=== PATIENT | male | born 1950 | race Caucasian/White ===

== ENCOUNTER → 2018-09-18 05:42 | Day surgery (SDC) | payer MEDICARE, OTHER ==
--- NOTE | 2018-08-16 06:32 | HP ---
CC: Dr. Alvarado * ADMITTING HISTORY AND PHYSICAL: DATE OF ADMISSION: 08/23/18 ADMITTING DIAGNOSES: 1. Gross hematuria. 2. Left renal calculus. PLANNED PROCEDURE: Left ureteroscopy, pyeloscopy, laser lithotripsy, and left stent insertion. SURGEON: Dr. Alarcon. HISTORY OF PRESENT ILLNESS: Girma Parekh is a 68-year-old gentleman who has had several episodes of gross hematuria. A CT scan had revealed a 7 to 8 mm calculus in the left renal pelvis and this calculus has not been visible on 2 consecutive plain x-rays leading me to think that this may represent a uric acid calculus. He was started on potassium citrate in an effort to try and dissolve the stone, but had another few episodes of gross hematuria recently. An ultrasound revealed an actual increase in the size of the calculus, which is now 9 mm and is present at the ureteropelvic junction. He is now being brought in for endoscopic management of the calculus because of the proximal location of the calculus. I have explained to him that he may require a 2-stage procedure with an initial stent insertion, possibly to be followed by a repeat ureteroscopy depending on the caliber of the ureter and the ease of expressing the renal pelvis on ureteroscopy. PAST MEDICAL HISTORY: Significant for high cholesterol. PAST SURGICAL HISTORY: Significant for bilateral total knee replacement and right total hip replacement. MEDICATIONS ON ADMISSION: Include: 1. Pravastatin 20 mg daily. 2. Flomax 0.4 mg daily. ALLERGIES: No known drug allergies. FAMILY HISTORY: His father had prostate cancer and he also has a family history of kidney stones. SMOKING HISTORY: He is a former smoker who quit in 1983 with a 10-pack year smoking history. PHYSICAL EXAMINATION GENERAL: Reveals a pleasant, healthy-appearing middle-aged gentleman. VITAL SIGNS: Blood pressure is 130/80, pulse 84 per minute and regular, temperature 97.4, oxygen saturation 96% on room air. LUNGS: Clear bilaterally. CARDIOVASCULAR EXAM: Regular rate and rhythm. S1, S2. ABDOMEN: Soft without masses. IMPRESSION: A 68-year-old gentleman with multiple episodes of gross hematuria secondary to a calculus in the left ureteropelvic junction. PLAN: Planned procedures are left ureteroscopy, pyeloscopy, laser lithotripsy, and stent insertion. [id number]/[facility] #: [id number] [facility]
--- NOTE | 2018-09-17 11:31 | HP ---
CC: Dr. Alvarado* ADMITTING HISTORY AND PHYSICAL: DATE OF ADMISSION: 09/18/18 ADMITTING DIAGNOSES: 1. Left renal calculus. 2. Recurrent episodes of gross hematuria. PLANNED PROCEDURE: Left ureteroscopy, pyeloscopy, laser lithotripsy, and left stent insertion. SURGEON: Dr. Alarcon. HISTORY OF PRESENT ILLNESS: Girma Parekh is a 68-year-old gentleman, who had previously been scheduled for the above-mentioned procedure on 08/23/18. He developed upper respiratory illness and the procedure had to be rescheduled and is now scheduled for 09/18/18. He was noted to have an approximately 8- to 9-mm calculus in the left renal pelvis and has had recurrent episodes of gross hematuria. PAST MEDICAL HISTORY: Significant for high cholesterol. PAST SURGICAL HISTORY: Significant for bilateral total knee replacements and right total hip replacement. MEDICATIONS: 1. Flomax 0.4 mg daily. 2. Pravastatin 20 mg daily. ALLERGIES: No known drug allergies. FAMILY HISTORY: Positive for prostate cancer in his father and also he has a strong family history of kidney stones. SOCIAL HISTORY: Smoking history: He is an ex-smoker with a 10- to 12-pack- year smoking history, who quit in 1983. REVIEW OF SYSTEMS: He is otherwise in excellent health. He denies any chest pain or shortness of breath and he has recovered completely from his recent upper respiratory illness. PHYSICAL EXAMINATION GENERAL: Reveals a pleasant, healthy-appearing gentleman. VITAL SIGNS: Blood pressure is 144/76, pulse 76 per minute and regular, temperature 97.5, oxygen saturation 98% on room air. LUNGS: Clear bilaterally. CARDIOVASCULAR: Regular rate and rhythm. S1, S2. ABDOMEN: Soft without masses. IMPRESSION AND PLAN: He has approximately 8- to 9-mm calculus in the area of the left renal pelvis, which is not visualized on plain x-rays and I had originally placed him on potassium citrate thinking that if this is a uric acid stone, I might be able to try and dissolve it; however, after taking the potassium citrate for over a month, he actually had a slight increase in the size of the calculus and is now being brought in for left ureteroscopy, possible laser, and stent insertion. [id number]/[facility] #: [id number] [facility]
[~2018-09-18 05:42] MED LIST: Acetaminophen TAB* 325 MG PO PRN; Buffered Lidocaine 1% SYRIN* 1 ML/SYRINGE INTRADERM ONE; Dexamethasone IV* 4 MG/ML 1 ML (4 MG) ONE; DiMENhydriNATE IV* 50 MG/ML VIAL IV PUSH PRN; Iohexol 180 (CONTRAST) 10 ML SDV IV ONE; Lactated Ringers 1000 ML Bag* 1,000 ML IV SCH; Lidocaine 2% PF * 5 ML VIAL ONE; Metoclopramide IV* 5 MG/ML 2 ML VIAL ONE; Midazolam* 1 MG/ML 2 ML VIAL (2 MG) ONE; Naloxone* 0.4 MG/ML 1 ML VIAL IV PRN; Ondansetron INJ* 2 MG/ML VIAL ONE; Propofol* 10 MG/ML 20 ML BTL ONE; cefTRIAXone(*) 2 GM ADDV.VIAL IVPB ONE; fentaNYL* 50 MCG/ML 2 ML VIAL (100 MCG VIAL) IV PRN; fentaNYL* 50 MCG/ML 2 ML VIAL (100 MCG VIAL) ONE; oxyCODONE TAB* 5 MG TAB PO PRN
[2018-09-18 09:33] VITALS: BP 142/79
--- NOTE | 2018-09-18 11:27 | OP ---
CC: Dr. Alvarado; Dr. Aroldo Alarcon* OPERATIVE REPORT: DATE OF OPERATION: 09/18/18 - [facility] DATE OF : 50 SURGEON: Aroldo Alarcon MD ANESTHESIOLOGIST: Dr. Mejia. ANESTHESIA: General. PRE-OP DIAGNOSES: 1. Left renal calculus. 2. Recurrent episodes of gross hematuria. POST-OP DIAGNOSES: 1. Left renal calculus. 2. Recurrent episodes of gross hematuria. 3. Bladder calculi and enlarged prostate. OPERATIVE PROCEDURES: 1. Cystoscopy. 2. Left ureteral dilatation. 3. Left ureteroscopy. 4. Left stent insertion. 5. Fragmentation and removal of small bladder calculi. COMPLICATIONS: None. STENT USED: A 7-Cuban stent, left ureter. OPERATIVE FINDINGS: 1. [id number] enlarged prostate. 2. Multiple small bladder calculi. 3. Fairly narrow left ureter with a radiopaque calculus noted in left renal pelvis. POSTOPERATIVE CONDITION: Stable. INDICATIONS: Girma Parekh is a 68-year-old gentleman, who has had recurrent episodes of gross hematuria secondary to calculus in the left renal pelvis, which was visualized on CT and ultrasound, but has not been seen on multiple plain x-rays suggesting that it may be a radiolucent calculus. DESCRIPTION OF PROCEDURE: After induction of general anesthesia, the patient was placed in dorsal lithotomy position. Sequential compression devices were in place and functioning. Initial cystoscopy revealed a normal-appearing urethra, significantly enlarged prostate with lateral lobe as well as median lobe enlargement. The bladder was examined. There were few small bladder calculi noted, which at the end of the procedure were fragmented and irrigated out. There was no evidence of any suspicious bladder lesions noted. A guidewire was introduced into the left ureter. On fluoroscopy, I could easily visualize the calculus, which appeared radiopaque in the area of the left renal pelvis. The ureter was fairly narrow and even a 4-Cuban open-ended catheter was very snug in the ureter. The ureter was carefully dilated initially to 4-Cuban and then subsequently to 8-Cuban. Once this was done, a 6-Cuban semirigid ureteroscope was introduced and advanced under direct vision. In spite of having dilated the ureter to 8-Cuban, the ureter was still extremely narrow and I advanced the ureteroscope about 3 to 4 cm into the ureter and then realized that it would be probably traumatic to the ureter to try to advance the ureteroscope all the way to the renal pelvis. In any case since the stone appeared radiopaque, I thought he would be a reasonably good candidate for shockwave lithotripsy and I elected to proceed with placement of 7 -Cuban left ureteral stent, which was positioned under fluoroscopic monitoring with good proximal and distal positioning obtained. As mentioned above, the small bladder calculi were fragmented and irrigated out of the end of the procedure. There was no need for a Wellington catheter and none was placed. The patient tolerated the procedure satisfactorily and was transferred back to the recovery area in stable condition. The plan is to bring him back in the next few weeks for shockwave lithotripsy as an outpatient. [id number]/[facility] #: [id number] [facility]
== END | disposition home or self-care (01) ==
LOC: OR 05:42
PROVIDERS: ATTEND Urology
DX: N20.0 Calculus of kidney (principal); R31.0 Gross hematuria; N21.0 Calculus in bladder; N40.0 Benign prostatic hyperplasia without lower urinary tract symptoms; E78.00 Pure hypercholesterolemia, unspecified; Z87.891 Personal history of nicotine dependence; Z85.820 Personal history of malignant melanoma of skin
CPT/HCPCS: 74018; 74420; C1876; J0696; J1100; J2250; J2405; J2704; J2765; J3010

== ENCOUNTER 2018-10-07 08:47 | Day surgery (SDC) | payer MEDICARE, OTHER ==
[~2018-10-07 08:47] MED LIST changes: -Acetaminophen TAB* 325 MG PO PRN; -Dexamethasone IV* 4 MG/ML 1 ML (4 MG) ONE; +Dexamethasone TAB* 4 MG PO ONE; +Famotidine IV* 10 MG/ML 2 ML (20 mg) IV ONE; -Iohexol 180 (CONTRAST) 10 ML SDV IV ONE; -Lidocaine 2% PF * 5 ML VIAL ONE; -Metoclopramide IV* 5 MG/ML 2 ML VIAL ONE; -Midazolam* 1 MG/ML 2 ML VIAL (2 MG) ONE; +Morphine 4 MG/ML VIAL (1 ml) 4 MG/ML VIAL IV PRN; +PROCHLORPERAZINE INJ 5 MG/ML 2 ML VIAL IV PRN; -Propofol* 10 MG/ML 20 ML BTL ONE; -cefTRIAXone(*) 2 GM ADDV.VIAL IVPB ONE; -fentaNYL* 50 MCG/ML 2 ML VIAL (100 MCG VIAL) ONE; -oxyCODONE TAB* 5 MG TAB PO PRN; +oxyCODONE/Acetamin 5/325 MG* TAB PO PRN
[2018-10-07] MEDS ORDERED: cefTRIAXone(*) 2 GM ADDV.VIAL IVPB ONE (09:14)
[2018-10-07] MEDS ORDERED: Dexamethasone TAB* 4 MG ONE (09:16)
[2018-10-07] MEDS ORDERED: Famotidine IV* 10 MG/ML 2 ML (20 mg) ONE (09:16)
[2018-10-07] MEDS ORDERED: Ondansetron ODT TAB* 4 MG ONE (09:16)
[2018-10-07] MEDS ORDERED: Buffered Lidocaine 1% SYRIN* 1 ML/SYRINGE INTRADERM ONE (09:16)
[2018-10-07] MEDS ORDERED: fentaNYL* 50 MCG/ML 2 ML VIAL (100 MCG VIAL) ONE (09:27)
[2018-10-07] MEDS ORDERED: Midazolam* 1 MG/ML 5 ML VIAL (5 MG) ONE (09:28)
[2018-10-07] MEDS ORDERED: KETAMINE HCL* 50 MG/ML 10 ML VIAL ONE (09:28)
[2018-10-07] MEDS ORDERED: Iohexol 180 (CONTRAST) 10 ML SDV IV ONE (10:47)
[2018-10-07] MEDS ORDERED: Lidocaine 2% PF * 5 ML VIAL ONE (11:06)
[2018-10-07] MEDS ORDERED: Propofol* 10 MG/ML 20 ML BTL ONE (11:06)
[2018-10-07] MEDS ORDERED: EPHEDrine (Pressors)* 50 MG/ML VIAL ONE (11:17)
[2018-10-07 13:24] VITALS: BP 145/70
--- NOTE | 2018-10-07 21:45 | OP ---
CC: Dr. Vasquez Alvarado * DATE OF OPERATION: 10/07/18 - [facility] DATE OF : 50 SURGEON: Dr. Alarcon. ANESTHESIOLOGIST: Dr. Ervin. ANESTHESIA: General. PRE-OP DIAGNOSIS: Left renal calculus. POST-OP DIAGNOSIS: Left renal calculus. OPERATIVE PROCEDURE: 1. Shockwave lithotripsy, left renal calculus. 2. Cystoscopy and left stent removal. COMPLICATIONS: None. POSTOPERATIVE CONDITION: Stable. INDICATIONS: Girma Parekh is a 68-year-old gentleman who has had recurrent episodes of gross hematuria secondary to an approximately 1 cm calculus in the left renal pelvis. He had previously undergone left stent insertion and is now being brought in for treatment of the calculus. DESCRIPTION OF PROCEDURE: After induction of general anesthesia, the patient was placed on the lithotripsy table in supine position. The calculus which was within in the proximal loop of the left stent was visualized using fluoroscopy and shockwave lithotripsy was commenced at a rate of 60 shocks per minute. After the initial 300 shocks, there was a pause in lithotripsy for several minutes in an effort to minimize any potential trauma to the kidney. Lithotripsy was then resumed and periodic imaging revealed good localization and fragmentation. A total of 2200 shocks were administered. Next, the patient was placed in dorsal lithotomy position, the stent was seen exiting from the left ureter and was grasped and removed intact without difficulty. The bladder was emptied. The patient tolerated the procedure satisfactorily and was transferred back to the recovery area in stable condition. [id number]/[facility] #: [id number] [facility]
== END 2018-10-07 13:10 | disposition home or self-care (01) ==
LOC: OR 08:47
PROVIDERS: ATTEND Urology
DX: N20.0 Calculus of kidney (principal); R31.0 Gross hematuria; Z87.891 Personal history of nicotine dependence; E78.5 Hyperlipidemia, unspecified
CPT/HCPCS: 74018; A9270-GY; J0696; J2250; J2704; J3010; J8540

== ENCOUNTER 2019-05-01 13:30 | Observation (INO) | payer MEDICARE, OTHER ==
--- NOTE | 2019-06-16 20:54 | HP ---
PREOPERATIVE HISTORY AND PHYSICAL: DATE OF ADMISSION/SURGERY: 07/01/19 DATE OF OFFICE VISIT: 06/16/19 ATTENDING SURGEON: Dr. Coby Martino.* (DICTATED BY CALEB BROWN) PROCEDURE: Left total hip replacement. CHIEF COMPLAINT: Left hip pain. HISTORY OF PRESENT ILLNESS: Girma is a 69-year-old female who presents to the clinic for left hip pain due to end-stage osteoarthritis. He has failed conservative measures, therefore agreed to undergo left total hip replacement with Dr. Martino on 07/01/19. PAST MEDICAL HISTORY: Melanoma, osteoarthritis, high cholesterol, BPH. PAST SURGICAL HISTORY: Bilateral total knee arthroplasties, right total hip arthroplasty, melanoma excision. The patient denies prior complication with anesthesia. MEDICATIONS: 1. Flomax 0.4 mg one by mouth every day. 2. Centrum 1 mg daily. 3. Magnesium 1 daily. 4. Vitamin D 1 daily. 5. Atorvastatin calcium 20 mg one every day. ALLERGIES: No known drug allergies. FAMILY HISTORY: Positive for diabetes and cancer. Denies family history of DVT or PE. SOCIAL HISTORY: He lives with his . 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 He denies tobacco use. He quit in 1983. He reports occasional alcohol consumption. He is right hand dominant. He drinks about 4 alcoholic beverages a week. REVIEW OF SYSTEMS: A 14-point review of systems was reviewed with the patient. Positive for current complaint, otherwise negative. Denies fever, chills, chest pain, shortness of breath, history of bleeding disorder, history of DVT or PE. PHYSICAL EXAMINATION GENERAL: A 69-year-old well-developed and well-nourished male, in no acute distress. VITAL SIGNS: Height 74, weight 246, pulse 80, blood pressure 146/60, respiratory rate 20, BMI 31.6. HEENT: Normocephalic, atraumatic. PERRLA. Throat: Clear. NECK: Supple. PULMONARY: Lungs clear to auscultation bilaterally. No wheezing, rhonchi, or rales. CARDIO: Regular rate and rhythm. S1, S2. No murmurs, gallops, or rubs. No edema. ABDOMEN: Positive bowel sounds, soft, nontender. NEURO: Alert and oriented x3. Cranial nerves grossly intact. MUSCULOSKELETAL: Left lower extremity, skin is intact. No warmth or erythema. No abrasions or bruise. No palpable masses or lymph nodes. Hip flexion at 90 degrees with severe groin pain. He externally rotates 20 degrees. He lacks internal rotation. +4/5 strength ankle dorsiflexor. Calf soft, nontender. +2 DP pulse. Sensation intact to light touch distally. DIAGNOSTIC STUDIES: Multiple x-rays of the left hip revealed end-stage osteoarthritis with [id number] contact osteophyte formation, subchondral sclerosis with cyst formation. IMPRESSION: Left hip osteoarthritis. PLAN/RECOMMENDATIONS: Mr. Parekh is a 69-year-old male who is scheduled to undergo left total hip replacement with Dr. Martino on 07/01/19. He will follow up in 10 to 14 days postop for followup and suture removal. Percocet will be used for postoperative pain management. CALEB BROWN [id number]/[facility] #: [id number] C[facility]
[2019-06-30] MEDS ORDERED: Buffered Lidocaine 1% SYRIN* 1 ML/SYRINGE INTRADERM ONE (13:38)
[2019-07-01] MEDS ORDERED: Tranexamic Acid 1,000 MG in NS 0.9% 50 ML* (outpatient use) IV SCH ×2
[2019-07-01] MEDS ORDERED: Lactated Ringers 1000 ML Bag* 1,000 ML IV SCH (06:00)
[2019-07-01] MEDS ORDERED: Dexamethasone TAB* 4 MG PO ONE (06:00)
[2019-07-01] MEDS ORDERED: Famotidine IV* 10 MG/ML 2 ML (20 mg) IV ONE (06:00)
[2019-07-01] MEDS ORDERED: Bupivacaine 0.5% SDV PF* 30ML VIAL ONE (08:49)
--- OUTSIDE RECORDS SUMMARY | 2019-07-01 10:02 | XMS REPORT | Continuity of Care Document ---
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 Onset: 05/31/2016 Abdominal aortic aneurysm without rupture Vasquez Alvarado D.O. Onset: 2016 History of malignant melanoma of the skin Vasquez Alvarado D.O. Onset: 2016 Osteochondropathy Vasquez Alvarado D.O. Onset: 08/29/2016 Vitamin D deficiency Vasquez Alvarado D.O. Onset: 08/29/2016 Kidney stone David Borden Onset: 10/28/2018 Pain of left hip joint David Borden Onset: 02/17/2019 Social History Type Date Description Comments Sex Unknown Tobacco Use Start: Unknown Denies Cigarette Use ETOH Use Occassional Alcohol Recreational Drug Use drug use - occasionally (rare) Tobacco Use Start: Unknown Non Smoker Smoking Status Reviewed: 06/12/19 Non Smoker Exercise Type/Frequency Exercises regularly Exercise Type/Frequency Exercises sporadically Sun Exposure Uses sunscreen not often Seat Belt/Car Seat Seat Belt Use - Yes Allergies, Adverse Reactions, Alerts Description No Known Drug Allergies Medications Active Medications SIG Qnty Indications Ordering Date Provider Vitamin E 360 MG one po daily Unknown 06/11/2019 Co Q-10 1 by mouth every Unknown 06/11/2019 100mg day Capsules Verapamil HCL TK 1 T PO D Unknown 05/22/2019 40mg Tablets Sildenafil Citrate 1/4 tab to 1 tab by 6taRodney Allen, 05/01/2019 mouth 20-60 minutes M.D. 100mg Tablets before anticipated sexual activity, for ED, maximum 1 a day Atorvastatin Calcium take one tablet by 90tabs Rodney Terry, 2018 mouth daily for M.D. 20mg Tablets cholesterol control Tamsulosin HCL 1 by mouth every 30caps Vasquez Alvarado, 01/15/2018 0.4mg day D.O. Capsules Advil 2-3 tabs every 6 Unknown 200mg Capsules hours, as needed with food Vitamin D3 1 tab by mouth Unknown 5000Unit every day or 7 tabs Tablets once a week Valtrex 1 by mouth every 30tabs Vasquez Alvarado, 500mg Tablets day as needed D.O. History Medications Doxycycline Hyclate 2 cap by mouth 2tabs Vasquez Alvarado, 03/14/2019 - 100mg once after tick D.O. 03/28/2019 Tablets bite lasting greater than 36hours Doxycycline 2 by mouth once 2caps Vasquez Alvarado, 02/27/2019 - Monohydrate D.O. 03/08/2019 100mg Capsules Iodine 300 MG 1 qd Rodney Terry, 02/17/2019 - M.D. 06/11/2019 Magnesium Oxide 1 qd Rodney Terry, 02/17/2019 - 400mg M.D. 06/11/2019 Tablets Immunizations CPT Code Status Date Vaccine Lot # [id number] Given 02/17/2019 Influenza Vaccine, Inactivated, Subunit, [id number] Adjuvanted, For [facility] [address] Given 02/15/2018 Influenza Vaccine, Inactivated, Subunit, [id number] [facility]ed, [place] [facility] [address] Given 04/05/2017 Adacel or Boostrix, TDaP [id number] 19910 Given 04/05/2017 Prevnar 13 [id number] Given 01/03/2017 Influenza Virus Vaccine, Quadrivalent, Split, [id number] Preservative Free Vital Signs Date Vital Result Comment 06/12/2019 9:19am BP Systolic 128 mmHg BP Diastolic 68 mmHg Height 73.5 inches 6'1.50" w/shoes Weight 231.00 lb w/shoes BMI (Body Mass Index) 30.1 kg/m2 02/17/2019 8:57am BP Systolic 120 mmHg BP Diastolic 82 mmHg Height 72.25 inches 6'0.25" Weight 237.00 lb BMI (Body Mass Index) 31.9 kg/m2 Results Test Acquired Date Facility Test Result H/L Range Note Urine Culture And 06/12/2019 [facility] Urine SEE RESULT 1 Sensitivities [phone] Culture BELOW Urinalysis Profile 06/12/2019 [facility] Urine Color Yellow [phone] Urine Appearance Clear Urine Specific [place] 1.016 Normal 1.010-1.030 Urine pH 6.0 Normal 5-9 Urine Urobilinogen Negative Negative Urine Ketones Negative Negative Urine Protein Negative Negative Urine Leukocytes Negative Negative Urine Blood 1+ Abnormal Negative Urine Nitrite Negative Negative Urine Bilirubin Negative Negative Urine Glucose Negative Negative Urine White Blood Cell Absent Absent Urine Red Blood Cell Trace(0-2/hpf) Absent Urine Bacteria Absent Absent Laboratory test finding 02/28/2019 [facility] HCG Tumor Marker <0.6 IU/ L <1.4 2 [phone] Afp Tumor Marker 3.3 ng/mL <6.0 3 Laboratory test 02/18/2019 [facility] PSA Screening 2.217 ng/mL Normal 0-4.000 4 finding [phone] Comp Metabolic 02/18/2019 [facility] Sodium 139 mmol/L Normal 135- 145 Panel [phone] Potassium 4.4 mmol/L Normal 3.5-5.0 Chloride 107 mmol/L Normal 101-111 Co2 Carbon Dioxide 26 mmol/L Normal 22-32 Anion Gap 6 mmol/L Normal 2-11 Glucose 94 mg/dL Normal 70-100 Blood Urea Nitrogen 22 mg/dL Normal 6-24 Creatinine 0.85 mg/dL Normal 0.67-1.17 BUN/Creatinine Ratio 25.9 High 8-20 Calcium 8.9 mg/dL Normal 8.6-10.3 Total Protein 6.7 g/dL Normal 6.4-8.9 Albumin 4.2 g/dL Normal 3.2-5.2 Globulin 2.5 g/dL Normal 2-4 Albumin/Globulin Ratio 1.7 Normal 1-3 Total Bilirubin 0.40 mg/dL Normal 0.2-1.0 Alkaline Phosphatase 94 U/L Normal 34-104 Alt 18 U/L Normal 7-52 Ast 15 U/L Normal 13-39 Egfr Non- 89.4 >60 Egfr 108.1 >60 5 Lipid Profile (Trig/Chol/HDL) 02/18/2019 [facility] Triglycerides 121 mg/dL 6 [phone] Cholesterol 197 mg/dL 7 HDL Cholesterol 49.8 mg/dL 8 LDL Cholesterol 123 mg/dL 9 Ua Inhouse 02/17/2019 In House Ua Specific [place] 1.015 Ua PH 7.0 1 SEE RESULT BELOW Name: APRIL REICH : [address]: Jennyfer Heck MD Acct: [id number] Unit: [id number] AGE: 69 Location: [facility] Re06/12/19 SEX: M Status: REG REF SPEC: [id number] ROSEMARIE: 06/12/19 [facility] DR: Jennyfer Heck MD REQ: [id number] RECD: 06/12/19 STATUS: COMP _ SOURCE: URINE SPDESC: ORDERED: Urine Culture Urine Source: Clean Catch Procedure Result Reported Site Urine Culture Final 06/13/19- 1403 ML No Growth (<1,000 CFU/mL) * ML - Main Lab . END OF REPORT DEPARTMENT OF PATHOLOGY, [address] [place] [address] Fernando Hatch M.D. Director [facility] # [id number] 2 ADDITIONAL INFORMATION This test has been modified from the chef head's instructions. Its performance characteristics were determined by [facility] in a manner consistent with CLIA requirements. This test has not been cleared or approved by the U.S. Food and Drug Administration. The testing method is an electrochemiluminescence assay manufactured by [employer] and performed on the Modular or Fred system. Values obtained with different assay methods or kits may be different and cannot be used interchangeably. Test results cannot be interpreted as absolute evidence for the presence or absence of malignant disease. Test Performed by: [facility] - [address] [address] [employer]: Bridger Cain M.D. Ph.D.; CLIA# [id number] 3 ADDITIONAL INFORMATION The testing method is an immunoenzymatic assay manufactured by [employer] and performed on the kaufDA DxI 800. Values obtained with different assay methods or kits may be different and cannot be used interchangeably. Test results cannot be interpreted as absolute evidence for the presence or absence of malignant disease. Alpha-Fetoprotein values are not interpretable in females for the investigation of malignant disease. Test Performed by: [facility] [address] [place] [address] [employer]: Bridger Cain M.D. Ph.D.; CLIA# [id number] 4 Serum levels of PSA measured using the Colleen Krystal DXI Hybritech immunoassay should not be interpreted as absolute evidence of the presence or absence of disease. The PSA value should be used in conjunction with other pertinent clinical diagnostic procedures. The values obtained with different assay methods or kits cannot be used interchangeably. 5 Because ethnic data is not always readily available, this report includes an eGFR for both -Americans and non- Americans. The National Kidney Disease Education Program (NKDEP) does not endorse the use of the MDRD equation for patients that are not between the ages of 18 and 70, are , have extremes of body size, muscle mass, or nutritional status, or are non- or non-. According to the National Kidney Foundation, irrespective of diagnosis, the stage of the disease is based on the level of kidney function: Stage Description GFR(mL/min/1.73 m(2)) 1 Kidney damage with normal or decreased GFR 90 2 Kidney damage with mild decrease in GFR 60-89 3 Moderate decrease in GFR 30-59 4 Severe decrease in GFR 15-29 5 Kidney failure <15 (or dialysis) 6 Desirable: <150 Borderline High: 150-199 High: 200-499 Very High: >500 7 Desirable: <200 Borderline High: 200-239 High: >239 8 Low: <40 Desirable: 40-60 High: >60 9 Desirable: <100 Near Optimal: 100-129 Borderline High: 130-159 High: 160-189 Very High: >189 Procedures Date Code Description Status 09/25/2013 [id number] Colonoscopy Completed Medical Devices Description No Information Available Encounters Type Date Location Provider Dx Diagnosis Office Visit 06/12/2019 Main Office Jennyfer Heck Z01.818 Encounter for other 9:00a preprocedural examination Z68.30 Body mass index (BMI) 30.0-30.9, adult Office Visit 02/17/2019 8:00a Main Office Jerri Flores N40.1 Benign prostatic P.A. hyperplasia with lower urinary tract symp E78.00 Pure hypercholesterolemia, unspecified Z23 Encounter for immunization Z41.8 Encntr for oth proc for purpose oth than remedy [facility] E66.3 Overweight Z80.42 Family history of malignant neoplasm of prostate Z00.00 Encntr for general adult medical exam w/o abnormal findings Z68.31 Body mass index (BMI) 31.0-31.9, adult Assessments Date Code Description Provider 06/12/2019 Z01.818 Encounter for other preprocedural examination Jennyfer Heck MD 06/12/2019 Z68.30 Body mass index (BMI) 30.0-30.9, adult Jennyfer Heck MD 02/17/2019 N40.1 Benign prostatic hyperplasia with lower Jerri Broomall, P.A. urinary tract sympto 02/17/2019 E78.00 Pure hypercholesterolemia, unspecified Jerri Broomall, P.A. 02/17/2019 Z23 Encounter for immunization Jerri Broomall, P.A. 02/17/2019 Z41.8 Encounter for other procedures for purposes [facility]ri Broomall, P.[facility]. [facility] 02/17/2019 E66.3 Overweight Jerri Broomall, P.A. 02/17/2019 Z80.42 Family history of malignant neoplasm of Jerri Broomall, P.A. prostate 02/17/2019 Z00.00 Encounter for general adult medical Jerri Broomall, P.A. examination without abnormal findings 02/17/2019 Z68.31 Body mass index (BMI) 31.0-31.9, adult Jerri Broomall, P.A. Plan of Treatment Future Appointment(s):02/19/2020 9:00 am - Jennyfer Heck MD at Main [id number] - Jerri Broomall, P.A.N40.1 Benign prostatic hyperplasia with lower urinary tract symptoComments:pt expressed a lot of concern with the situation that his [facility] an aggressive form of prostate ca was missed. Pt interested in pursuing a second opinion for self to evaluate this.Referral:Errol Erazo MD, XdwehsjH08.00 Pure hypercholesterolemia, aceputwggwoL34 Encounter for immunizationComments:Counseling done regarding risks and benefits of vaccines, previous vaccine reactions and possible contraindications to vaccine discussed, and pt's questions answered. Pt agreed to vaccination. VIS sheets given.Z41.8 Encounter for other procedures for purposes other than remedying health zhumdC16.3 GdpysbwjmjJ63.42 Family history of malignant neoplasm of lomwbktrH99.00 Encounter for general adult medical examination without abnormal vyiwjfnrS69.31 Body mass index (BMI) 31.0-31.9, adult Functional Status Description No Information Available Mental Status Description No Information Available Referrals Refer to Reason for Referral Status Appt Date Errol Erazo MD Prostate enlargement with brother with recent dx of Closed 08/2018 aggressive prostate cancer, that was missed on multiple tests performed by urologist. most recent PSA 2.62 in 01/2018. Consult and Testing - Specialist [facility] [address] [place] [address] [phone]
--- OUTSIDE RECORDS SUMMARY | 2019-07-01 10:02 | XMS REPORT | Continuity of Care Document ---
:1950 External Reference #:[id number] Author Name Coby Martino M.D. (transmitted by agent of provider Kassandra Fletcher) Address [address] [facility] [place] [address] Care Team Providers Name Role Phone Getachew Núñez M.D. - Family Medicine Care Team Information Cost Consultant [phone] Marco Antonio Ortiz MD - Sports Medicine Care Team Information Cost Consultant [phone] Vasquez Alvarado DO - Family Care Team Information Cost Consultant [phone] Medicine Problems Active Problems Provider Date Localized, primary osteoarthritis of the pelvic Coby Martino M.D. Onset: region and thigh Social History Type Date Description Comments Sex Unknown ETOH Use Occasionally consumes alcohol Tobacco Use Start: Unknown End: Patient is a former smoker 36 years ago Unknown Smoking Status Reviewed: 06/16/19 Patient is a former smoker 36 years ago Exercise Type/Frequency Exercises regularly Allergies, Adverse Reactions, Alerts Description No Known Drug Allergies Medications Active Medications SIG Qnty Indications Ordering Provider Date Flomax 1 by mouth every Unknown 0.4mg Capsules day Centrum 1 by mouth every Unknown Tablets day Magnesium Unknown Vitamin D Unknown Atorvastatin Calcium 1 by mouth every Unknown 20mg day Tablets Medications Administered in Office Medication SIG Qnty Indications Ordering Provider Date No Injection Coby Martino M.D. 02/10/2019 Injection Depomedrol 40MG Coby Martino M.D. 02/10/2019 Injection Depomedrol 80MG Getachew Samayoa M.D. 02/26/2012 Injection Immunizations Description No Information Available Vital Signs Date Vital Result Comment 06/16/2019 8:09am Height 74 inches 6'2" Weight 246.50 lb Heart Rate 80 /min BP Systolic 146 mmHg BP Diastolic 60 mmHg Respiratory Rate 20 /min Body Temperature 97.7 F Pain Level 3 BMI (Body Mass Index) 31.6 kg/m2 02/10/2019 9:32am Height 74 inches 6'2" Weight 241.00 lb Heart Rate 60 /min BP Systolic 130 mmHg BP Diastolic 78 mmHg Respiratory Rate 12 /min Body Temperature 97.1 F Pain Level 8 BMI (Body Mass Index) 30.9 kg/m2 Results Test Acquired Date Facility Test Result H/L Range Note Xray 02/10/2019 [employer] [facility] In House Inj/Aspir Major JT Or Bursa <pending> W/ US Procedures Date Code Description Status 02/10/201926326 Inj/Aspir Major JT Or Bursa W/ US Completed Medical Devices Description No Information Available Encounters Type Date Location Provider Dx Diagnosis Office Visit 02/10/2019 [facility] Aleaxndro Brooke5.552 Pain in left hip 9:00a at [facility] M16.12 Unilateral primary osteoarthritis, left hip Assessments Date Code Description Provider 06/16/2019 M25.552 Pain in left hip Coby Martino M.D. 06/16/2019 M16.12 Unilateral primary osteoarthritis, left hip Coby Martino M.D. 02/24/2019 M25.552 Pain in left hip Coby Martino M.D. 02/24/2019 M16.12 Unilateral primary osteoarthritis, left hip Coby Martino M.D. 02/21/2019 M25.552 Pain in left hip Coby Martino M.D. 02/21/2019 M16.12 Unilateral primary osteoarthritis, left hip Coby Martino M.D. 02/10/2019 M25.552 Pain in left hip Coby Martino M.D. 02/10/2019 M16.12 Unilateral primary osteoarthritis, left hip Coby Martino M.D. Plan of Treatment Future Appointment(s):07/01/2019 10:30 am - Coby Martino M.D. at [facility] at [facility]6/16/2019 - Coby Martino M.D.M25.552 Pain in left hipM16.12 Unilateral primary osteoarthritis, left hipFollow up:10-14 days post op Functional Status Description No Information Available Mental Status Description No Information Available Referrals Description No Information Available
--- OUTSIDE RECORDS SUMMARY | 2019-07-01 10:02 | XMS REPORT | Continuity of Care Document ---
:1950 External Reference #:[id number] Author Name Terry Powell M.D. (transmitted by agent of provider Mariluz Matamoros ) Address [address] [facility] [address] [place] [address] Care Team Providers Name Role Phone Getachew Núñez M.D. 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 Marco Antonio Ortiz MD - Sports Medicine Care Team Information Stone Decorator Vasquez Alvarado DO - Family Care Team Information Stone Decorator [phone] Medicine Problems Active Problems Provider Date Localized, [...] Date Facility Test Result H/L Range Note CBC Auto 06/16/2019 [facility] White Blood 6.0 10^3/uL Normal 3.5-10.[address] [place] [address] [phone] Red Blood Count 5.03 10^6/uL Normal 4.18-5.48 Hemoglobin 14.0 g/dL Normal 14.0-18.0 Hematocrit 42 % Normal 42-52 Mean Corpuscular Volume 83 fL Normal 80-94 Mean Corpuscular Hemoglobin 28 pg Normal 27-31 Mean Corpuscular HGB Conc 34 g/dL Normal 31-36 Red Cell Distribution Width 14 % Normal 10-15 Platelet Count 227 10^3/uL Normal 150-450 Mean Platelet Volume 8.1 fL Normal 7.4-10.4 Abs Neutrophils 3.4 10^3/uL Normal 1.5-7.7 Abs Lymphocytes 1.7 10^3/uL Normal 1.0-4.8 Abs Monocytes 0.5 10^3/uL Normal 0-0.8 Abs Eosinophils 0.3 10^3/uL Normal 0-0.6 Abs Basophils 0.1 10^3/uL Normal 0-0.2 Abs Nucleated RBC 0.0 10^3/uL Granulocyte % 56.1 % Lymphocyte % 28.9 % Monocyte % 8.6 % Eosinophil % 5.5 % Basophil % 0.9 % Nucleated Red Blood Cells % 0.1 Basic Metabolic 06/16/2019 [facility] Sodium 138 mmol/L Normal 135-[address] [place] [address] [phone] Potassium 4.5 mmol/L Normal 3.5-5.0 Chloride 105 mmol/L Normal 101-111 Co2 Carbon Dioxide 27 mmol/L Normal 22-32 Anion Gap 6 mmol/L Normal 2-11 Glucose 86 mg/dL Normal 70-100 Blood Urea Nitrogen 15 mg/dL Normal 6-24 Creatinine 0.83 mg/dL Normal 0.67-1.17 BUN/Creatinine Ratio 18.1 Normal 8-20 Calcium 9.4 mg/dL Normal 8.6-10.3 Egfr Non- 91.9 >60 Egfr 111.2 >60 1 Laboratory 06/16/2019 [facility] TSH (Thyroid 0.53 Normal 0.34 -5.60 test finding [address] Stim Horm) mcIU/[place] [address] [phone] Free T4 (Free Thyroxine) 0.90 ng/dL Normal 0.61-1.12 Inr/Protime 06/16/2019 [facility] Inr 0.91 Normal 0.82-1.[address] [place], [place] [id number] [phone] Laboratory test 06/16/2019 [facility] Partial 37.3 Normal 26.0 -38.[address] [place] [address] Time PTT [phone] Type & Screen 06/16/2019 [facility] Patient O [place] [address] [phone] Antibody Screen NEGATIVE Urinalysis Profile 06/16/2019 [facility] Urine Color [address] [place], [place] [id number] [phone] Urine Appearance Clear Urine Specific [place] 1.004 Low 1.010-1.030 Urine pH 8.0 Normal 5-9 Urine Urobilinogen Negative Negative Urine Ketones Negative Negative Urine Protein Negative Negative Urine Leukocytes Negative Negative Urine Blood 1+ Abnormal Negative Urine Nitrite Negative Negative Urine Bilirubin Negative Negative Urine Glucose Negative Negative Urine White Blood Cell Absent Absent Urine Red Blood Cell Trace(0-2/hpf) Absent Urine Bacteria Absent Absent Urine Culture And 06/16/2019 [facility] Urine Culture SEE RESULT [address] [place] [address] [phone] Xray 02/10/2019 [facility] In House Inj/Aspir <pending> Major JT Or Bursa W/ US 1 Because ethnic data is not always readily [...] 15-29 5 Kidney failure <15 (or dialysis) 2 Standard intensity warfarin therapeutic range: 2.0-3.0 High intensity warfarin therapeutic range: 2.5-3.5 3 SEE RESULT BELOW Name: APRIL REICH : [address]: Coby Martino MD Acct: [id number] Unit: [id number] AGE: 69 Location: [facility] Re06/16/19 SEX: M Status: REG REF SPEC: [id number] ROSEMARIE: 06/16/19-1005 [facility] DR: Coby Martino MD REQ: [id number] RECD: 06/16/19-1023 STATUS: VANESSA JAEGER DR: Vasquez Alvarado DO _ SOURCE: URINE SPDESC: ORDERED: Urine Culture QUERIES: Urine Source: Random Procedure Result Reported Site Urine Culture Final 06/17/19- 1003 ML No Growth (<1,000 CFU/mL) * ML - Main Lab . END OF REPORT DEPARTMENT OF PATHOLOGY, [address] [place] [address] Fernando Hatch M.D. Director [facility] # [id number] Procedures Date Code Description Status 02/10/2019 59878 Inj/Aspir Major JT Or Bursa W/ US Completed Medical Devices Description No Information Available Encounters Type Date Location Provider Dx Diagnosis Office Visit 02/10/2019 [facility] Vane Brooke.55Wu [facility] Unilateral primary osteoarthritis, left hip Assessments [...] 10:30 am - Coby [facility] M.D. at [facility]06/16/2019 - Coby Martino M.D.M25.552 Pain in left hipM16.12 Unilateral primary osteoarthritis, left hipFollow up:10-14 days post op Functional Status Description No Information Available Mental Status Description No Information Available Referrals Description No Information Available
--- OUTSIDE RECORDS SUMMARY | 2019-07-01 10:03 | XMS REPORT | Continuity of Care Document ---
:1950 External Reference #:[id number] Author Name Beulah Feldman [facility] Address [address] [place] [id number] Care Team Providers Name Role Phone Jerri Flores PA-C - Physician Care Team Information Software Engineering Associate Manager Wholesale Account Executive Vasquez Alvarado D.O. - Family Medicine Care Team Information Software Engineering Associate Manager Problems Active Problems Provider Date Abdominal aortic aneurysm without rupture Onset: 08/29/2016 History of malignant melanoma of the skin Onset: 08/29/2016 Kidney stone Onset: 10/28/2018 Mixed hyperlipidemia Onset: 05/31/2016 Osteochondropathy Onset: 08/29/2016 Pain of left hip joint Onset: 02/17/2019 Vitamin D deficiency Onset: 08/29/2016 Benign prostatic hyperplasia with lower urinary tract PO Collins Erazo MD Onset: symptoms Induratio penis plastica PO Collins Erazo MD Onset: 04/30/2019 Benign prostatic hypertrophy with outflow obstruction NIKKO Erazo MD Onset: Social History Type Date Description Comments Sex Unknown Tobacco Use Start: Unknown End: Unknown Former Cigarette Smoker [id number] Smoking Status Reviewed: 04/30/19 Former Cigarette Smoker [id number] ETOH Use Occ Alcohol Intake Allergies, Adverse Reactions, Alerts Description No Known Drug Allergies Medications Active Medications SIG Qnty Indications Ordering Provider Date Verapamil HCL 1 p.o. daily 30tabs N48.6 PO Collins Erazo MD 04/30/2019 40mg Tablets Magnesium Oxide 1 qd Rodney Terry 02/17/2019 400(241.3Mg) mg Tablets Tamsulosin HCL 1 by mouth every 30caps Vasquez Alvarado 01/15/2018 0.4mg day D.O. Capsules Advil 2-3 tabs every 6 Unknown 200mg Capsules hours, as needed with food Vitamin D3 1 tab by mouth Unknown 5000Unit every day or 7 Tablets tabs once a week Valtrex 1 by mouth every 30tabs Vasquez Alvarado 500mg Tablets day as needed D.O. Atorvastatin Calcium CoronaJerri 20mg PA-C Tablets Multi Vitamin 1 by mouth every Unknown Tablets day Coq10 1 by mouth every Unknown 100mg Capsules day Immunizations Description No Information Available Vital Signs Date Vital Result Comment 04/30/2019 9:56am Height 72 inches 6'0" Weight 235.00 lb Weight 106.596 kg BMI (Body Mass Index) 31.9 kg/m2 Results Test Acquired Date Facility Test Result H/L Range Note Laboratory test 05/15/2019 Laboratory [place] Urine <pending> [place] [address] Culture [phone] Laboratory test 05/15/2019 [facility] Rectal Swab < pending> finding [address] [address] [place] [address] [phone] 230 Ua Routine 05/15/2019 [facility] Ua Glucose Negative REF TO DR LEE ON ORDER FOR (315)- - Ua Protein Negative Ua Nitrite Negative Ua Leuko Negative Ua Blood Negative Ua Color Not Entered Ua Ketones Negative Ua Clarity Not Entered Ua Specific [place] 1.025 1.003-1.030 Ua PH 6.0 5.0-7.5 Ua Bilirubin Negative Ua Urobilinogen 0.2 E.U./dL 0.0-1.0 BUN And 05/02/2019 [facility] Blood Urea 21 mg/dL Normal 6-[address] [place], [place] [id number] [phone] Creatinine 05/02/2019 [facility] Creatinine 0.95 Normal 0.67-1.[address] mg/dL [address] [place] [address] [phone] Egfr Non- 78.6 >60 Egfr 95.1 >60 1 230 Ua Routine 04/30/2019 [facility] Ua Glucose Negative REF TO DR ADDRESS ON ORDER FOR (315)- - Ua Protein Negative Ua Nitrite Negative Ua Leuko Negative Ua Blood Negative Ua Color Not Entered Ua Ketones Negative Ua Clarity Not Entered Ua Specific [place] 1.025 1.003-1.030 Ua PH 7.5 5.0-7.5 Ua Bilirubin Negative Ua Urobilinogen 0.2 E.U./dL 0.0-1.0 Lab Results 02/18/2019 N2N/CCD Import PSA Screening 2.217 ng/mL 0-4.000 2 Sodium 139 mmol/L 135-145 Potassium 4.4 mmol/L 3.5-5.0 Chloride 107 mmol/L 101-111 Co2 Carbon Dioxide 26 mmol/L 22-32 Anion Gap 6 mmol/L 2-11 Glucose 94 mg/dL 70-100 Blood Urea Nitrogen 22 mg/dL 6-24 Creatinine 0.85 mg/dL 0.67-1.17 BUN/Creatinine Ratio 25.9 1 High 8-20 Calcium 8.9 mg/dL 8.6-10.3 Total Protein 6.7 g/dL 6.4-8.9 Albumin 4.2 g/dL 3.2-5.2 Globulin 2.5 g/dL 2-4 Albumin/Globulin Ratio 1.7 1 1-3 Total Bilirubin 0.40 mg/dL 0.2-1.0 Alkaline Phosphatase 94 U/L 34-104 Alt 18 U/L 7-52 Ast 15 U/L 13-39 Egfr Non- 89.4 1 Egfr 108.1 1 3 Lipid Profile (Trig/Chol/HDL) 02/18/2019 N2N/CCD Import Triglycerides 121 mg/dL 4 Cholesterol 197 mg/dL 5 HDL Cholesterol 49.8 mg/dL 6 LDL Cholesterol 123 mg/dL 7 Lab Results 02/17/2019 N2N/CCD Import PSA Screening <pending> 1 Because ethnic data is not always [...] 5 Kidney failure <15 (or dialysis) 2 Serum levels of PSA measured using the [employer] De[employer] DXI Hybritech immunoassay should not be interpreted as absolute evidence of the presence or absence of disease. The PSA value should be used in conjunction with other pertinent clinical diagnostic procedures. The values obtained with different assay methods or kits cannot be used interchangeably. 3 Because ethnic data is not always readily [...] 15-29 5 Kidney failure <15 (or dialysis) 4 Serum levels of PSA measured using the [employer] DXI Hybritech immunoassay should not be interpreted as absolute evidence of the presence or absence of disease. The PSA value should be used in conjunction with other pertinent clinical diagnostic procedures. The values obtained with different assay methods or kits cannot be used interchangeably. 5 Desirable: <200 Borderline High: 200-239 High: >239 6 Low: <40 Desirable: 40-60 High: >60 7 Desirable: <100 Near Optimal: 100-129 Borderline High: 130-159 High: 160-189 Very High: >189 Procedures Description No Information Available Medical Devices Description No Information Available Encounters Type Date Location Provider Dx Diagnosis Office Visit 05/15/2019 [facility] Beulah Feldman, Z00.00 Encntr for general 3:30p Street/ [facility]- adult medical exam Urology w/o abnormal findings N40.3 Nodular prostate with lower urinary tract symptoms Z80.42 Family history of malignant neoplasm of prostate Office Visit 04/30/2019 10:40a [facility] NIKKO Erazo MD N40.[address]/ [facility] hyperplasia with Urology lower urinary tract symp N40.3 Nodular prostate with lower urinary tract symptoms N48.6 Induration penis plastica Assessments Date Code Description Provider 05/15/2019 Z00.00 Encounter for general adult medical Beulah Feldman [employer] examination without abnormal findings 05/15/2019 N40.3 Nodular prostate with lower urinary tract Beulah Feldman [employer] symptoms 05/15/2019 Z80.42 Family history of malignant neoplasm of Beulah Feldman [employer] prostate 04/30/2019 N40.1 Benign prostatic hyperplasia with lower PO Collins Erazo MD urinary tract symptoms 04/30/2019 N40.3 Nodular prostate with lower urinary tract NIKKO Erazo MD symptoms 04/30/2019 N48.6 Induration penis plastica NIKKO Erazo MD Plan of Treatment Future Appointment(s):06/03/2019 4:00 pm - Jorge Beach MD at [facility]/ [facility] Wdkqhmb4806/03/2019 4:00 pm - MIRI, MRI BX Room at [facility]/ A..P. Dtjqcdg6106/11/2019 11:40 am - NIKKO Erazo MD at [facility]/ [facility] Tooibik34/19/2019 - HARPER Barcenas-BCZ00.00 Encounter for general adult medical examination without abnormal luqfkikiQ00.3 Nodular prostate with lower urinary tract symptomsComments:He comes the office today for rectal swab but asked the nurse to speak with someone about his MRI results. I reviewed the MRI results that showed an area of PI-RADS 3 concern. I explained to him thata PI-RADS the 3 generally indicates that he would have the option to undergo a prostate biopsy or continue with surveillance. I further recommended that due to his digital rectal exam and strong family history he undergo the prostate biopsy as scheduled. He also had several questions regarding his follow-up if his prostate biopsy is negative, to which I further explained he would be watched carefully with PSAs and digital rectal exams. I also briefly reviewed the possibility of sending his negative biopsy samples for DNA methylation biomarker test called select MDX.In the end I just provided reassurance that based on his clinical picture and MRI results it would be prudent for him to proceed with the MRI fusion biopsy.Z80.42 Family history of malignant neoplasm of prostate Functional Status Description No Information Available Mental Status Description No Information Available Referrals Description No Information Available
[2019-07-01] MEDS ORDERED: Dexamethasone TAB* 4 MG ONE (10:53)
[2019-07-01] MEDS ORDERED: ceFAZolin 2 GM PREMIX in ORs 2 GM/50 ML BAG ONE (10:54)
[2019-07-01] MEDS ORDERED: Buffered Lidocaine 1% SYRIN* 1 ML/SYRINGE INTRADERM ONE (10:54)
[2019-07-01] MEDS ORDERED: Famotidine IV* 10 MG/ML 2 ML (20 mg) ONE (10:54)
[2019-07-01] MEDS ORDERED: Midazolam* 1 MG/ML 5 ML VIAL (5 MG) ONE (12:15)
[2019-07-01] MEDS ORDERED: fentaNYL* 50 MCG/ML 5 ML VIAL (250 MCG VIAL) ONE (12:15)
[2019-07-01] MEDS ORDERED: Propofol* 500 MG/50 ML BTL ONE (12:56)
[2019-07-01] MEDS ORDERED: Lidocaine 2% PF * 5 ML VIAL ONE (12:57)
[2019-07-01] MEDS ORDERED: Phenylephrine 40 MCG/ML SYRINGE ONE (13:42)
[2019-07-01] MEDS ORDERED: Phenylephrine 10 MG/ML VIAL* 1 ML VIAL ONE (13:51)
[2019-07-01] MEDS ORDERED: HYDROcodone/ACETAMIN 5-325 MG* 1 TAB PO PRN (14:08)
[2019-07-01] MEDS ORDERED: PROCHLORPERAZINE INJ 5 MG/ML 2 ML VIAL IV PRN (14:08)
[2019-07-01] MEDS ORDERED: Naloxone* 0.4 MG/ML 1 ML VIAL IV PRN (14:08)
[2019-07-01] MEDS ORDERED: oxyCODONE/Acetamin 5/325 MG* TAB PO PRN (14:08)
[2019-07-01] MEDS ORDERED: Ondansetron TAB* 4 MG PO PRN (14:26)
[2019-07-01] MEDS ORDERED: Magnesium Hydroxide LIQ* 30 ML UDC PO PRN (14:26)
[2019-07-01] MEDS ORDERED: diPHENhydraMINE PO* 25 MG PO PRN (14:26)
[2019-07-01] MEDS ORDERED: Morphine INJ* 2 MG/ML 1 ML SYRINGE (TWO MG - NEW SYRINGE VERSION) IV PRN (14:26)
[2019-07-01] MEDS ORDERED: Polyethylene Glycol 3350* 17 GM PACKET PO PRN (14:26)
[2019-07-01] MEDS ORDERED: Cyclobenzaprine TAB* 10 MG PO PRN (14:26)
[2019-07-01] MEDS ORDERED: Ondansetron ODT TAB* 4 MG PO PRN (14:26)
[2019-07-01] MEDS ORDERED: diPHENhydraMINE IV* 50 MG/ML 1 ml VIAL (BENADRYL) IV PRN (14:26)
[2019-07-01] MEDS ORDERED: fentaNYL* 50 MCG/ML 2 ML VIAL (100 MCG VIAL) ONE ×2 (15:09→16:18)
[2019-07-01] MEDS: fentaNYL* 50 MCG/ML 2 ML VIAL (100 MCG VIAL) IV PRN ×4 (15:10→16:38)
[2019-07-01] MEDS ORDERED: HYDROcodone/ACETAMIN 5-325 MG* 1 TAB ONE (15:51)
[2019-07-01] MEDS: Lactated Ringers 1000 ML Bag* 1,000 ML IV SCH (17:10)
[2019-07-01] MEDS: oxyCODONE TAB* 5 MG TAB PO PRN ×2 (17:27→23:17)
--- NOTE | 2019-07-01 18:59 | OP ---
Operative Report - Blank - Operative Report Date of Operation: 07/01/19 Note: APRIL REICH 1950 Date Of Surgery: 07/01/19 Coby Martino MD [employer] Machine Operator: Nato ELLIS did help throughout the procedure with preparation of the hip, wound retraction, manipulation of the hip, and wound closure. Anesthesiologist: Dr. Mcgraw Anesthesia Type: Spinal Preoperative Diagnosis: Left severe degenerative osteoarthritis of the hip Postoperative Diagnosis: As above Procedure Performed: Left Total Hip Arthroplasty Complications: None Specimen: Femoral head and acetabular reamings sent to pathology. Hardware used: This is uncemented [place] total hip arthroplasty hardware for the femur a size 9 accolade II with 127 neck angle femoral component, for the acetabulum a size 56F trident II tritanium cluster hole shell, 2 screws length 20mm, for the insert a size 40 F trident X3 polyethylene insert, and for the femoral head a size 40 +0 biolox ceramic V40 femoral head. Brief history/Indication: APRIL REICH was known in clinic and had a history of severe left hip pain. He failed conservative treatment with anti- inflammatories, pain pills, intra-articular injections and physical therapy. He elected to undergo left total hip arthroplasty due to continued pain and decreased quality of life. Radiographs showed severe end stage osteoarthritis of the hip with bone on bone contact. Informed consent was obtained from the patient. He understood the risks of surgery included but were not limited to: bleeding, infection, damage to nearby structures, intraoperative fracture, nerve palsy, failure of the hardware, early loosening, stiffness or loss of motion, dislocation, leg length discrepancy, anesthesia complications, stroke, heart attack, blood clot and . He wished to proceed. Intra-Operative findings: Intraoperatively the patient was noted to have severe loss of cartilage of the acetabulum and femoral head. Description of the Procedure: APRIL REICH was identified in the preanesthesia unit. His left hip was marked as the correct operative side. Informed consent was signed and placed in the chart. The patient was taken to the operating room and placed under anesthesia without complication. A moran catheter was placed. The patient was placed on the peg board with all bony prominences well padded. The left lower extremity was prepped and draped in the usual sterile fashion. Preoperative time -out was made to correctly identify the patient, side and site. Appropriate intraoperative antibiotics were given within one hour of incision. A standard posterior incision was made and carried sharply down to the lateral fascia. A new 10 blade was used to make an incision in the fascia in line with the skin incision. A charnley retractor was placed. The piriformis and conjoined tendons were identified and elevated off the posterolateral femur using electrocautery. These were tagged with number 5 Ethibond. Next electrocautery was used to make a posterolateral capsular flap and this was tagged with number 5 Ethibonds. The hip was carefully dislocated. Lesser trochanter to the center of the femoral head was measured at 72 mm. The oscillating saw was used to make the femoral neck cut. The femoral head was carefully removed. The femur was retracted anteriorly and the acetabular retractors were placed. Long-handled knife was used to sharply remove any remaining labrum from the acetabular rim. The acetabulum was sequentially reamed up to a size 56. A bleeding subchondral bone bed was obtained. A trial liner was placed and had excellent fit and stability. A 56F cup with two screws was placed and had excellent stability with appropriate anteversion and abduction angle. A size 40F polyethylene liner was impacted into the acetabular shell. The liner was checked for stability and was stable. Next attention was turned to preparation of the femoral canal. A canal finder was used to enter the proximal femur. The femoral canal was sequentially broached up to a size 9 femoral broach trial. A trial neck and 40 + 0 trial femoral head was chosen. Lesser trochanter to center of the femoral head measurement was satisfactory. The hip was reduced and taken through a range of motion. The hip was stable in all positions with good soft tissue tension and appropriate leg lengths. The hip was dislocated and all trials were removed. The final implant chosen was a accolade II size 9. This stem was impacted into the femoral canal without difficulty. The stem was stable with appropriate anteversion. The femoral head chosen was a 40 + 0 ceramic head. The head was impacted onto the femoral neck without difficulty. The final lesser trochanter to center of the femoral head measurement was satisfactory. The hip was reduced and taken through a range of motion. The hip was stable in all positions with good soft tissue tension and appropriate leg lengths. The hip was copiously irrigated with sterile saline. The previously tagged capsule and tendons were repaired to the posterolateral femur through two trochanteric drill holes. The lateral fascia layer was closed using number 1 vicryls. The rest of the incision was closed in a layered fashion using 0 and 2-0 vicryls. The skin was closed using 3-0 monocryl suture and Dermabond. Sterile adaptic, 4x4s and paper tape was used to cover the incision. The patients anesthesia was reversed without difficulty. He was taken to the PACU in stable condition. Intended weight-bearing will be as tolerated with posterior hip precautions.
[2019-07-01] MEDS: Ondansetron INJ* 2 MG/ML VIAL IV PRN (20:37)
[2019-07-01] MEDS: traMADol TAB* 50 MG PO PRN (20:54)
[2019-07-01] MEDS: ceFAZolin 1 GM ADVAN(*) 1 GM in NS 0.9% 50 ML* 50 ML IVPB SCH (20:55)
[2019-07-01] MEDS: Docusate CAP* 100 MG PO SCH (20:55)
[2019-07-01] MEDS: Magnesium Hydroxide LIQ* 30 ML UDC PO SCH (20:55)
[2019-07-01] MEDS: Acetaminophen TAB* 325 MG PO SCH (23:34)
[2019-07-02] MEDS: traMADol TAB* 50 MG PO PRN (02:42)
[2019-07-02] MEDS: Lactated Ringers 1000 ML Bag* 1,000 ML IV SCH (03:18)
[2019-07-02] MEDS: ceFAZolin 1 GM ADVAN(*) 1 GM in NS 0.9% 50 ML* 50 ML IVPB SCH ×2 (05:37→12:36)
[2019-07-02] MEDS: Acetaminophen TAB* 325 MG PO SCH ×2 (05:39→16:15)
[2019-07-02] MEDS: oxyCODONE TAB* 5 MG TAB PO PRN ×2 (05:40→13:05)
[2019-07-02 06:33] LABS: Hematocrit 36 % (42-52); Hemoglobin 12.4 g/dL (14.0-18.0); Mean Platelet Volume 8.1 fL (7.4-10.4); Platelet Count 206 10^3/uL (150-450)
[2019-07-02 06:48] LABS: BUN/Creatinine Ratio 16.4 (8-20); Calcium 8.7 mg/dL (8.6-10.3); EGFR African American 128.9 (>60); EGFR Non-African American 106.5 (>60); Potassium 4.4 mmol/L (3.5-5.0)
[2019-07-02] MEDS: Docusate CAP* 100 MG PO SCH (08:15)
[2019-07-02] MEDS: Magnesium Hydroxide LIQ* 30 ML UDC PO SCH (08:15)
[2019-07-02] MEDS ORDERED: Tamsulosin CAP* 0.4 MG PO SCH (09:00)
[2019-07-02] MEDS ORDERED: Apixaban* 2.5 MG TAB PO SCH (09:00)
[2019-07-02] MEDS ORDERED: Vitamin THERAPEUTIC TAB PO SCH (09:00)
[2019-07-02] MEDS ORDERED: Atorvastatin* 20 MG TAB PO SCH (09:00)
[2019-07-02] MEDS: Ondansetron INJ* 2 MG/ML VIAL IV PRN (09:11)
[2019-07-02] MEDS: oxyCODONE/Acetamin 5/325 MG* TAB PO PRN ×2 (09:13→16:19)
--- NOTE | 2019-07-02 11:44 | PN ---
Progress Note - Progress Note Date of Service: 07/02/19 SOAP: Subjective: Pt is doing well. Pain is controlled. Chronic bilat feet N/T with no change. Denies F/C, CP/SOB or calf pain Objective: PE- 69 y/o WDWN M NAD, A&Ox3 LLE- dressing c/d/i, calf soft NT, +DF/PF ankle, +2 Dp pulse, sensation decreased to light touch distally no change from baseline Vital Signs Temp Pulse Resp BP Pulse Ox 97.9 F 53 16 118/62 99 07/02/19 11:22 07/02/19 11:22 07/02/19 11:22 07/02/19 11:22 07/02/19 11:22 Laboratory Results - last 24 hr 07/01/19 07/02/19 07/02/19 11:17 05:41 05:41 Hgb 12.4 L Hct 36 L Plt Count 206 MPV 8.1 Sodium 133 L Potassium 4.4 Chloride 101 Carbon Dioxide 25 Anion Gap 7 BUN 12 Creatinine 0.73 Est GFR ( Amer) 128.9 Est GFR (Non-Af Amer) 106.5 BUN/Creatinine Ratio 16.4 Glucose 131 H Calcium 8.7 Antibody Screen Negative Assessment: POD 1 S/P Left total hip arthroplasty Plan: WBAT- PT/OT Eliquis for DVT prophylaxis Cont post hip precautions Cont percocet for pain control Plan discharge to home with outpt PT today vs tomorrow. Will eval after afternoon therapy
[2019-07-02] MEDS ORDERED: Scopolamine 1.5 mg* PATCH TRANSDERM PRN (13:47)
[2019-07-02 15:27] VITALS: BP 142/64
--- NOTE | 2019-07-02 22:07 | DS ---
Orthopedic Discharge Summary - Discharge Summary Date of service: 07/02/19 Date of Admission:07/01/19 Date of Discharge: [07/02/19] Date of Surgery: [07/01/19] Attending Orthopedic Provider: [Dr. Martino] Pre-operative Diagnosis: [left hip OA] Operative Procedure: [Left total hip replacement] Disposition of Patient:[Home] Home care vs Outpatient services: [Outpatient PT] Condition of Patient: [Stable] Pain medication RX at discharge: [Percocet] DVT prophylaxis RX at discharge: [Eliquis] History: APRIL REICH is a 69 year old M with years of increasingly severe [ left hip] pain. Patient has failed conservative management and has elected to undergo a [left] total [hip] replacement Hospital Course: APRIL was admitted to [facility] on 07/01/19. Patient underwent a [left total hip replacement] without complication followed by a brief recovery in PACU and transfer to the Short Stay Surgical Unit in stable condition. Our hospitalist service, physical therapy and occupational therapy also participated in this patients care. Post-op day 1: patient was alert and in no acute distress. Incision was clean, dry and intact. Operative extremity dorsiflexion and plantarflexion intact, sensation intact to light touch distally, DP2+. Patient was deemed to be medically and orthopedically stable for discharge to home with outpatient PT. Physical therapy goals were met. Home Medications Medication Instructions Recorded Confirmed Type Cholecalciferol TAB* [Vitamin D 5,000 unit PO QAM 08/19/18 07/01/19 History TAB*] Multivitamin [One-Daily 1 each PO QAM 08/19/18 07/01/19 History Multi-Vitamin] Tamsulosin HCl [Flomax] 0.4 mg PO QAM 08/19/18 07/01/19 History Atorvastatin* [Lipitor 20 MG*] 20 mg PO QAM 06/16/19 07/01/19 History Collagen 200 Mg Po 200 mg PO QAM 06/16/19 07/01/19 History Ubidecarenone [Coq10] 100 mg PO QAM 06/16/19 07/01/19 History Vitamin E 360 Mg 360 mg PO QAM 06/16/19 07/01/19 History Apixaban* [Eliquis*] 2.5 mg PO BID tab 07/02/19 Rx Docusate CAP* [Colace Cap*] 100 mg PO BID cap 07/02/19 Rx oxyCODONE/Acetamin 5/325 MG* 2 tab PO Q4H PRN tab MDD 10 07/02/19 Rx [Percocet 5/325 TAB*] Discharge Instructions following Orthopedic Surgery: Activity: * Weight Bearing as tolerated * Continue physical therapy and occupational therapy exercises as shown * If you have elected to have home physical therapy, continue therapy exercises at home. If you have elected outpatient physical therapy, please start therapy as an outpatient right away. Hip replacements: Continue Hip Precautions- do not cross legs or bend greater than 90 degrees/squat Wound care: * OK to shower on post-op day 3, no bathing, swimming, or submerging wound. * Use gentle soap, pat dry. Cover with gauze, OCTAVIANO wrap or tape. Daily dressing changes Call Orthopedic office for: * Increased drainage * Redness * Increased pain * Fever Go to ER with shortness of breath or chest pain. Diet: * Regular diet * Increase fluids and fiber to prevent constipation. * Continue to use stool softeners, call office if no bowel motion within 48 hours. Colace 100 mg take 1 tab every 8 hours as needed constipation Medications See Home Medication List in your packet for medications that you should take after discharge. DVT Prophylaxis: Eliquis Dosin.5 mg, 1 tab every 12 hours x 30 days DO NOT take ibuprofen while on eliquis Pain Control: Percocet 5/325 mg 1 tab for moderate pain and 2 tabs for severe pain by mouth every 4 hours as needed. Maximum of 10 tabs per day. Hold for sedation , wean off as soon as pain allows Please note that Percocet contains Tylenol (acetaminophen). Maximum daily dose of Tylenol is 4000 mg from all sources. Antibiotics are required prior to any dental work. FOLLOW UP: Follow up with Dr. Bloom] Within [10-14] days, call for appointment Please call our office with any questions or concerns ([phone])
[2019-07-05] MEDS ORDERED: Scopolamine PATCH Remove* 1 NOTE MISC PATCH OFF SCH (14:00)
== END 2019-07-02 17:32 | disposition home or self-care (01) ==
LOC: AA 07-01 09:59 → INTOOBSV 07-01 09:59 → SSU 07-01 14:26
PROVIDERS: ADMIT Orthopaedic Surgery Adult Reconstructive Orthopaedic Surgery; ATTEND Orthopaedic Surgery Adult Reconstructive Orthopaedic Surgery
DX: M16.12 Unilateral primary osteoarthritis, left hip (principal); E78.00 Pure hypercholesterolemia, unspecified; N40.0 Benign prostatic hyperplasia without lower urinary tract symptoms; Z85.820 Personal history of malignant melanoma of skin; Z79.899 Other long term (current) drug therapy; Z96.653 Presence of artificial knee joint, bilateral; Z96.641 Presence of right artificial hip joint; Z87.891 Personal history of nicotine dependence; Z68.30 Body mass index [BMI] 30.0-30.9, adult
CPT/HCPCS: 36415; 72170; 80048; 85014; 85018; 85049; 86850; 86900; 86901; 96374; 96375; A9270-GY; G0378; J0690; J2250; J2270; J2405; J2704; J3010; J3490; J8540